=== PATIENT | male | born 1990 | race American Indian/Alaskan Native ===

== ENCOUNTER 2017-06-16 21:34 | Emergency (ER) | payer SELFPAY | END 2017-06-16 22:00 | disposition left against medical advice (07) | LOC: ED 21:34 | DX: Z04.1 Encounter for examination and observation following transport accident (principal); Z53.21 Procedure and treatment not carried out due to patient leaving prior to being seen by health care provider; V89.2XXA Person injured in unspecified motor-vehicle accident, traffic, initial encounter; Y93.89 Activity, other specified; Y99.8 Other external cause status; Y92.410 Unspecified street and highway as the place of occurrence of the external cause ==

== ENCOUNTER 2017-08-01 03:21 | Emergency (ER) | payer OTHER ==
[2017-08-01] MEDS ORDERED: DUONEB *Not for PRN Use IH ONE ×3 (03:28→04:04)
[2017-08-01 03:35] VITALS: BP 121/89
[2017-08-01] MEDS ORDERED: DELTASONE ONE (04:00)
[2017-08-01] MEDS ORDERED: DELTASONE PO ONE (04:03)
--- NOTE | 2017-08-01 05:05 | Emergency Department Report ---
HPI - General Chief Complaint: Adult Asthma Time Seen by Provider: 08/01/17 04:49 - HPI HPI: Patient is a 26-year-old male with a history of asthma and is out of his medication presents here today states he suddenly woke up with an asthma attack feeling some chest tightness and feeling slight short of breath. Patient states he is out of these medications and came into the ED to be treated. Patient denies cough, fever, chest pain, abdominal pain, ED Past Medical Hx - Past Medical History Previous Medical History?: Yes Hx Asthma: Yes - Social History Smoking Status: Never Smoker - Medications Home Medications: Home Medications Medication Instructions Recorded Confirmed Last Taken Type Fluticasone [Flonase] 1 spray NS QDAY #1 bottle 01/25/14 Unknown Rx Penicillin Vk [Veetids TAB] 500 mg PO BID #20 tablet 01/25/14 Unknown Rx ALBUTEROL Inhaler [ProAir HFA 2 puff IH QID PRN #200 inhalation 08/01/17 Unknown Rx Inhaler] Benzonatate [Tessalon Perles] 100 mg PO Q8HR #20 capsule 08/01/17 Unknown Rx predniSONE [Deltasone] 40 mg PO QDAY #10 tablet 08/01/17 Unknown Rx ED Review of Systems ROS: Stated complaint: ASTHMA Other details as noted in HPI Constitutional: denies: chills, fever Eyes: denies: eye pain, eye discharge, vision change ENT: denies: ear pain, throat pain Respiratory: shortness of breath, wheezing. denies: cough Cardiovascular: denies: chest pain, palpitations Endocrine: no symptoms reported Gastrointestinal: denies: abdominal pain, nausea, diarrhea Genitourinary: denies: urgency, dysuria Musculoskeletal: denies: back pain, joint swelling, arthralgia Skin: denies: rash, lesions Neurological: denies: headache, weakness, paresthesias Psychiatric: denies: anxiety, depression Hematological/Lymphatic: denies: easy bleeding, easy bruising Physical Exam - Physical Exam Vital Signs: Vital Signs 08/01/17 03:32 Temperature 97.7 F Pulse Rate 84 Respiratory 24 Rate Blood Pressure 121/89 O2 Sat by Pulse 94 Oximetry Physical Exam: GENERAL: Alert and oriented x3, no apparent distress, Normal Gait, atraumatic. HEAD: Head is normocephalic and a-traumatic. EYES: Extra ocular muscles are intact. Pupils are equal, round, and reactive to light and accommodation. MOUTH:Mouth is well hydrated and without lesions. Tonsils nonerythematous or swollen, Uvula midline, Tongue not elevated. Mucous membranes are moist. Posterior pharynx clear, no exudate or lesions. Patent airways. NECK: Supple. Non edematous, No C-spine tenderness LUNGS: Symetrical with respiration, mild wheezing at lower lung bases, no rales or crackles, CTAB. No use of accessory muscles. HEART: S1, S2 present, regular rate and rhythm without murmur, no rubs, no gallops. Non tender to palpation SKIN: Warm and dry, No lesions, No ulceration or induration present. ED Course Vital Signs 08/01/17 03:32 Temperature 97.7 F Pulse Rate 84 Respiratory 24 Rate Blood Pressure 121/89 O2 Sat by Pulse 94 Oximetry ED Medical Decision Making - Medical Decision Making 26-year-old male male presents with asthma attack ED course: Patient received 60 prednisone, DuoNeb respiratory breathing treatment. Patient states O2 sat increase after breathing treatment Patient is in no respiratory acute distress Discussed with the patient will refill his medications. Discussed with patient to follow up with primary care physician Critical care attestation.: If time is entered above; I have spent that time in minutes in the direct care of this critically ill patient, excluding procedure time. ED Disposition Clinical Impression: Asthma attack Qualifiers: Asthma severity: mild Asthma persistence: intermittent Qualified Code(s): J45.21 - Mild intermittent asthma with (acute) exacerbation Disposition: -01 TO HOME OR SELFCARE Is pt being admited?: No Does the pt Need Aspirin: No Condition: Stable Instructions: Asthma (ED) Additional Instructions: Make sure to follow up with the primary care physician as discussed. Take all your medications as you've been prescribed. If you have any worsening symptoms or develop new symptoms please return to ED immediately. Prescriptions: ALBUTEROL Inhaler [ProAir HFA Inhaler] 2 puff IH QID PRN #200 inhalation PRN Reason: Shortness Of Breath Benzonatate [Tessalon Perles] 100 mg PO Q8HR #20 capsule predniSONE [Deltasone] 40 mg PO QDAY #10 tablet Referrals: GAMA COLÓN MD [Primary Care Provider] - 3-5 Days SARAH MIXON MD [Referring] - 3-5 Days [facility] [Outside] - 3-5 Days [facility] [Outside] - 3-5 Days Forms: Work/School Release Form(ED) Time of Disposition: 05:05
== END 2017-08-01 05:50 | disposition home or self-care (01) ==
LOC: ED 03:21
DX: J45.909 Unspecified asthma, uncomplicated (principal); Z91.013 Allergy to seafood
CPT/HCPCS: 94640; 99283; J7512